=== PATIENT | female | born 1980 | race Caucasian/White ===

== ENCOUNTER 2019-07-26 12:10 | Emergency (ER) | payer SELFPAY ==
--- NOTE | 2019-07-26 13:19 | EDM.PDOC ---
ED HPI GENERAL MEDICAL PROBLEM - General Chief Complaint: Syncope Stated Complaint: FAINT Time Seen by Provider: 07/26/19 13:09 Source of Information: Reports: Patient History Limitations: Reports: No Limitations - History of Present Illness INITIAL COMMENTS - FREE TEXT/NARRATIVE: Patient presents for evaluation of syncopal episode which occurred today approximately 0800 hrs. She has had other episodes this year similar to this. The others have been associated with anxiety/panic attacks. This morning, she felt a panic attack coming on and after a couple of minutes had been moving from room to room at her location. She had been sitting and 1 room and got up to go to the bedroom and when she came into the bedroom she apparently collapsed. It was unwitnessed. She woke up on her own but is uncertain how long she may have been out. No injuries as a result of falling. When she talked with family later, they were concerned and try to get advice from a nurse help line but came here for further evaluation. She sustained a head injury earlier this year and was hospitalized for a period of time. Her last visit here was for treatment of a migraine headache and the GI symptoms accompanying it. She has significant family in interpersonal stress and sees no way around that. When she gets up panic attack, her heart rate will go up and she develops tingling of her mouth and fingers ears and also has what sounds like carpopedal spasms. As we talk, she thinks that another panic attack is beginning. During and after the episode this morning, she was not incontinent. She had no chest pressure or pain. She's not sure about racing heart. Onset: Today Onset Time: 08:00 Location: Reports: Generalized Severity: Mild Improves with: Reports: None Worsens with: Reports: Other (Seems to occur in the context of panic attack or similar stressful episodes.) Associated Symptoms: Denies: Nausea/Vomiting Headache Pain Score (Numeric/FACES): 1 - Related Data Allergies Allergy/AdvReac Type Severity Reaction Status Date / Time bee venom protein (honey bee) Allergy Swelling Verified 07/26/19 12:58 Home Meds: Home Meds Cyclobenzaprine [Flexeril] 10 mg PO TID PRN 07/26/19 [History] Gabapentin [Neurontin] 300 mg PO TID 07/26/19 [History] Past Medical History HEENT History: Reports: Impaired Vision Genitourinary History: Reports: UTI, Recurrent [employer] [place] History: Reports: , Spontaneous Musculoskeletal History: Reports: Fracture Neurological History: Reports: Head Trauma Hematologic History: Reports: Anemia - Past Surgical History GI Surgical History: Reports: Hernia, Inguinal Female Surgical History: Reports: Hysterectomy Social & Family History - Tobacco Use Smoking Status *Q: Current Every Day Smoker Years of Tobacco use: 20 Packs/Tins Daily: 0.5 - Caffeine Use Caffeine Use: Reports: Coffee - Recreational Drug Use Recreational Drug Use: No ED ROS GENERAL - Review of Systems Review Of Systems: See Below Constitutional: Reports: No Symptoms Cardiovascular: Reports: Lightheadedness. Denies: Chest Pain, Orthopnea GI/Abdominal: Reports: No Symptoms. Denies: Stool Incontinence : Denies: Incontinence Psychiatric: Reports: Anxiety - Physical Exam Exam: See Below Exam Limited By: No Limitations General Appearance: Anxious Head Exam: Atraumatic Neck: Normal Inspection Respiratory/Chest: No Respiratory Distress Cardiovascular: Regular Rate, Rhythm Psychiatric: Anxious (Patient had an anxious tearful episode at the conclusion of our exam.) Course - Vital Signs Last Recorded V/S: Last Vital Signs Temp 36.6 C 07/26/19 13:05 Pulse 85 07/26/19 13:05 Resp 20 07/26/19 13:05 BP 126/77 07/26/19 13:05 Pulse Ox 99 07/26/19 13:05 - Orders/Labs/Meds Orders: Active Orders 24 hr Category Date Time Status EKG Documentation Completion [RC] ASDIRECTED Care 07/26/19 13:24 Ordered EKG 12 Lead [EK] Routine Ther 07/26/19 13:24 Ordered Meds: Medications Discontinued Medications Generic Name Dose Route Start Last Admin Trade Name Yasmin PRN Reason Stop Dose Admin Lorazepam 1 mg 07/26/19 13:24 07/26/19 13:37 Ativan PO 07/26/19 13:25 1 mg ONETIME ONE Administration - Re-Assessments/Exams Free Text/Narrative Re-Assessment/Exam: 07/26/19 15:31 We'll obtain an EKG to make sure that rate or rhythm are not unusual. Nothing untoward was seen with her EKG. She was requesting something to take for anxiety while she was here and 1 mg of lorazepam orally was given to her. Return later to review the EKG and other symptoms and she was resting comfortably. She previously was prescribed gabapentin which he has not taken for some time. She was last seen by primary care earlier this month. I discussed restarting that and taking advantage of its partial anxiolytic effect. Prescription sent with patient for gabapentin 100 mg, 15 capsules; use as directed. Discussed that she cannot resume dosing where she left off a cause she at that time was at 300 mg 3 times daily. Recheck with primary care before that medicine is completed and if she felt it offers something, they would have to continue prescriptions. Reasons to return to emergency department reviewed. Departure - Departure Time of Disposition: 14:44 Disposition: Home, Self-Care 01 Condition: Good Clinical Impression: Vasovagal syncope - Discharge Information *PRESCRIPTION DRUG MONITORING PROGRAM REVIEWED*: Not Applicable *COPY OF PRESCRIPTION DRUG MONITORING REPORT IN PATIENT LANDRY: Not Applicable Instructions: Syncope Referrals: PCP,None [Primary Care Provider] - Forms: ED Department Discharge Additional Instructions: Avoid sudden changes in position especially if you have been sitting or lying down for a while. Restart gabapentin and take it regularly for the next 7-10 days. See what that does for background anxiety. Recheck with primary care regarding anxiety symptoms at that point. No alarming findings were seen today. - My Orders Last 24 Hours: My Active Orders 07/26/19 13:24 EKG Documentation Completion [RC] ASDIRECTED EKG 12 Lead [EK] Routine - Assessment/Plan Last 24 Hours: My Active Orders 07/26/19 13:24 EKG Documentation Completion [RC] ASDIRECTED EKG 12 Lead [EK] Routine
[2019-07-26] MEDS ORDERED: LORazepam 1 MG Tab PO ONE (13:24)
== END 2019-07-26 15:01 | disposition home or self-care (01) ==
LOC: JP.ED 12:10
DX: R55 Syncope and collapse (principal); F17.200 Nicotine dependence, unspecified, uncomplicated; Z91.030 Bee allergy status; Z90.710 Acquired absence of both cervix and uterus
CPT/HCPCS: 93005; 99283; A9270

== ENCOUNTER 2022-10-28 18:09 | Emergency (ER) | payer MEDICAID ==
[2022-10-28] MEDS ORDERED: LORazepam 0.5 MG Tab PO ONE ×2 (18:54→19:46)
[2022-10-28 19:01] LABS: ESTIMATED GFR 111 mL/min (>60)
== END 2022-10-28 19:54 ==
LOC: JP.ED 18:09
DX: F32.A Depression, unspecified (principal); F10.10 Alcohol abuse, uncomplicated; Z91.030 Bee allergy status; Z20.822 Contact with and (suspected) exposure to COVID-19; Y90.2 Blood alcohol level of 40-59 mg/100 ml
CPT/HCPCS: 36415; 80053; 80305; 80307; 81001; 85025; 87635; 99284; A9270; U0002

== ENCOUNTER 2024-02-15 18:58 | Emergency (ER) | payer MEDICAID ==
[2024-02-15 19:20] LABS: AMPHETAMINES SCREEN, URINE NEGATIVE (NEGATIVE); BARBITURATE SCREEN,URINE NEGATIVE (NEGATIVE); BENZODIAZEPINES SCREEN,URINE NEGATIVE (NEGATIVE); METHADONE SCREEN, URINE NEGATIVE (NEGATIVE); METHAMPHETAMINES SCREEN, URINE NEGATIVE (NEGATIVE); OXYCODONE SCREEN,URINE NEGATIVE (NEGATIVE); PROPOXYPHENE SCREEN,URINE NEGATIVE (NEGATIVE); THC SCREEN,URINE 50 NG/ML PRESUMPTIVE POSITIVE (NEGATIVE)
== END 2024-02-15 19:50 | disposition other institution (70) ==
LOC: JP.ED 18:58
DX: F10.10 Alcohol abuse, uncomplicated (principal); F17.210 Nicotine dependence, cigarettes, uncomplicated; Z91.030 Bee allergy status; Z90.710 Acquired absence of both cervix and uterus; Y90.9 Presence of alcohol in blood, level not specified
CPT/HCPCS: 36415; 80305-QW; 80307; 81025; 99284